=== PATIENT | male | born 1985 | race Caucasian/White ===

== ENCOUNTER 2024-01-17 14:33 | Emergency (ER) | payer OTHER, SELFPAY ==
[2024-01-17 14:50] VITALS: BP 153/91; PULSE 77; RESP 16; TEMP 37.1; O2SAT 98; BMI 36.3
--- NOTE | 2024-01-17 14:51 | ECG_ITS ---
[facility] Test Date: 2024-01-17 Pat Name: Edgar Rasmussen Department: Room: Gender: Male Application Systems Architect: : [id number] Requested By: Carlos Hay Order Number: [id number] Devon MD: CHRISTELLE PORTILLO Measurements Intervals [place] Rate: 89 P: 69 [place]: 150 QRS: 75 QRSD: 91 T: 41 QT: 347 QTc: 422 Interpretive Statements SINUS RHYTHM No previous ECG available for comparison Electronically Signed On 01-18-2024 17:28:45 COPYWRITING INTERN by CHRISTELLE [email or web address]
== END 2024-01-17 17:38 | disposition left against medical advice (07) ==
PROVIDERS: Emergency Provider Family Medicine
DX: Z53.21 Procedure and treatment not carried out due to patient leaving prior to being seen by health care provider (principal)
CPT/HCPCS: 93005